=== PATIENT | female | born 1955 | race Two or more races ===

== ENCOUNTER 2017-10-28 13:18 | Outpatient (CLI) | payer OTHER ==
[~2017-10-28 13:18] MED LIST: CEFADROXIL500 MG PO; PERCOCET 5/3251 TAB PO
== END 2017-10-28 13:24 | disposition home or self-care (01) ==
LOC: RAD 13:18
DX: M54.5 Low back pain (principal); M25.552 Pain in left hip; M25.551 Pain in right hip

== ENCOUNTER 2022-10-01 07:09 | Outpatient (CLI) | payer OTHER | END 2022-10-01 07:11 | disposition home or self-care (01) | LOC: NUCLEAR 07:09 | PROVIDERS: ATTEND General Practice | DX: M54.16 Radiculopathy, lumbar region (principal) | CPT/HCPCS: 78315; A9503 ==